=== PATIENT | female | born 1995 | race Caucasian/White ===

== ENCOUNTER 2018-05-16 08:37 | Emergency (ER) | payer MEDICAID, OTHER ==
[~2018-05-16] VITALS: Ht 152.4 cm; Wt 96.2 kg
--- NOTE | 2018-05-16 09:36 | NUR ---
LAB ORDERD PRIOR BEFORE PATIENT COMING BACK TO ROOM
[2018-05-16 09:47] LABS: BILIRUBIN,URINE NEGATIVE (NEGATIVE); CLARITY,URINE CLEAR; COLOR,URINE YELLOW; GLUCOSE, URINE (UA) NEGATIVE (NEGATIVE); KETONES,URINE NEGATIVE (NEGATIVE); LEUKOCYTE ESTERASE ,URINE NEGATIVE (NEGATIVE); NITRITE,URINE NEGATIVE (NEGATIVE); PH,URINE 7 (5-9); PROTEIN,URINE NEGATIVE (NEGATIVE); UROBILINOGEN,URINE NORMAL (NORMAL)
[2018-05-16 09:58] LABS: BACTERIA,URINE TRACE /HPF
[2018-05-16] MEDS ORDERED: VITIAMS (09:58)
[2018-05-16 10:02] LABS: BASOPHILS % (AUTO) 0 % (0-10); EOSINOPHILS # (AUTO) 0.1 10^3/uL (0.0-0.3); EOSINOPHILS % (AUTO) 0 % (0-10); HEMATOCRIT 41 % (35-52); HEMOGLOBIN 14.1 G/DL (11.5-16.0); LYMPHOCYTES # (AUTO) 2.3 X 10^3 (1.0-4.0); LYMPHOCYTES % (AUTO) 17 % (12-44); MEAN CORPUSCULAR HEMOGLOBIN 28 PG (25-34); MEAN CORPUSCULAR HGB CONC 35 G/DL (32-36); MEAN CORPUSCULAR VOLUME 82 FL (80-99); MONOCYTES # (AUTO) 0.6 X 10^3 (0.0-1.0); MONOCYTES % (AUTO) 5 % (0-12); NEUTROPHILS # (AUTO) 10.4 X 10^3 (1.8-7.8); NEUTROPHILS % (AUTO) 78 % (42-75); PLATELET COUNT 280 10^3/uL (130-400); RED CELL DISTRIBUTION WIDTH 13.9 % (10.0-14.5); WHITE BLOOD COUNT 13.3 10^3/uL (4.3-11.0)
--- NOTE | 2018-05-16 12:16 | Diagnostic Imaging Report ---
EXAMINATION: OB Ultrasound (late gestation; 14-40 weeks) INDICATION: Bleeding and cramping in a patient. Patient reports last menstrual period of 01/17/2018. TECHNIQUE: Multiple real-time grayscale images were obtained over the gravid uterus. COMPARISON: None FINDINGS: There is a single live intrauterine in the transverse position. The placenta is low/posterior in location, and there is no evidence of previa or placental abruption. The placenta is positioned adjacent to the cervix, however, does not appear to overlie the cervix. The heart rate is 149 beats per minute. The cervix measures at least 3.4 cm in length. biometric data/growth parameters are as follows: Abdominal circumference measures 11.10 cm; biparietal diameter measures 3.31 cm; head circumference measures 12.69 cm; femur length is 2.26 cm. The maternal adnexa are in suboptimally evaluated the ovaries are not visualized. IMPRESSION: Single live intrauterine gestation, with biometric data as detailed above. Adjusted ultrasound age based on biometric data on today's exam is 16 weeks 5 days, which is concordant with gestational age based on last menstrual period of 17 weeks 0 days. The placenta is located adjacent to the cervix, but does not appear to overlie the cervix at this time. Given history of vaginal spotting, close clinical followup is recommended with repeat ultrasound as indicated. Dictated by: Dictated on workstation # [id number]
--- NOTE | 2018-05-16 13:03 | ED GU-Female ---
General Chief Complaint: -Female Stated Complaint: 17 WKS PREG VAGINAL BLEEDING Nursing Triage Note: AMB TO ROOM REPORTS IS APX 17 WEEKS ONSET OF SPOTTING TODAY. ALSO REPORTS STILL BREAST FEEDING HER TODDLER. Nursing Sepsis Screen: No Definite Risk Source: patient Exam Limitations: no limitations Review of Systems Review of Systems Expected Date of Delivery: Oct 24, 2018 Past Ysafsmm-Dtcmxt-Elqldc Hx Patient Social History Alcohol Use: Denies Use Recreational Drug Use: No Smoking Status: Never a Smoker Recent Foreign Travel: No Contact w/Someone Who Travel: No Recent Infectious Disease Expo: No Past Medical History Surgeries: No Respiratory: No Cardiac: No Neurological: No : Yes Expected Date of Delivery: Oct 24, 2018 Last Menstrual Period: Jan 17, 2018 Hx : 2 Hx Para: 1 Sexually Transmitted Disease: No Genitourinary: No Gastrointestinal: No Endocrine: No HEENT: No Cancer: No Psychosocial: No Integumentary: No Physical Exam Vital Signs Vital Signs - First Documented 05/16/18 09:36 Temp 98.6 Pulse 83 Resp 18 B/P (MAP) 126/86 (99) Pulse Ox 99 O2 Delivery Room Air Capillary Refill : Less Than 3 Seconds Height, Weight, BMI Height: 5'" Weight: 212lbs. oz. 96.377607av; BMI Method:Stated Progress/Results/Core Measures Suspected Sepsis Recent Fever Within 48 Hours: No Infection Criteria Present: None New/Unexplained Altered Menta: No Sepsis Screen: No Definite Risk SIRS Temperature:98.6 Pulse: 83 Respiratory Rate: 18 Laboratory Tests 05/16/18 09:55: White Blood Count 13.3H Blood Pressure 126 /86 Mean: 99 Laboratory Tests 05/16/18 09:55: Platelet Count 280 Results/Orders Lab Results Laboratory Tests Test 05/16/18 09:40 05/16/18 09:55 Range/Units Urine Color YELLOW Urine Clarity CLEAR Urine pH 7 5-9 Urine Specific [place] 1.005 L 1.016-1.022 Urine Protein NEGATIVE NEGATIVE Urine Glucose (UA) NEGATIVE NEGATIVE Urine Ketones NEGATIVE NEGATIVE Urine Nitrite NEGATIVE NEGATIVE Urine Bilirubin NEGATIVE NEGATIVE Urine Urobilinogen NORMAL NORMAL MG/DL Urine Leukocyte Esterase NEGATIVE NEGATIVE Urine RBC (Auto) 1+ H NEGATIVE Urine RBC NONE /HPF Urine WBC NONE /HPF Urine Crystals NONE /LPF Urine Bacteria TRACE /HPF Urine Casts NONE /LPF Urine Mucus NEGATIVE /LPF Urine Culture Indicated NO White Blood Count 13.3 H 4.3-11.0 10^3/uL Red Blood Count 5.02 4.35-5.85 10^6/uL Hemoglobin 14.1 11.5-16.0 G/DL Hematocrit 41 35-52 % Mean Corpuscular Volume 82 80-99 FL Mean Corpuscular Hemoglobin 28 25-34 PG Mean Corpuscular Hemoglobin Concent 35 32-36 G/DL Red Cell Distribution Width 13.9 10.0-14.5 % Platelet Count 280 130-400 10^3/uL Mean Platelet Volume 9.0 7.4-10.4 FL Neutrophils (%) (Auto) 78 H 42-75 % Lymphocytes (%) (Auto) 17 12-44 % Monocytes (%) (Auto) 5 0-12 % Eosinophils (%) (Auto) 0 0-10 % Basophils (%) (Auto) 0 0-10 % Neutrophils # (Auto) 10.4 H 1.8-7.8 X 10^3 Lymphocytes # (Auto) 2.3 1.0-4.0 X 10^3 Monocytes # (Auto) 0.6 0.0-1.0 X 10^3 Eosinophils # (Auto) 0.1 0.0-0.3 10^3/uL Basophils # (Auto) 0.0 0.0-0.1 10^3/uL Human Chorionic Gonadotropin, Quant 97503 H <5 MIU/ML My Orders Orders - KATJA BECK MD Cbc With Automated Diff (05/16/18 08:44) Ua Culture If Indicated (05/16/18 08:44) Abo Rh Type (05/16/18 08:44) Hcg,Quantitative (05/16/18 08:44) Us Ob Preg Late(14-40wks)46756 (05/16/18 ) Vital Signs/I&O 05/16/18 09:36 Temp 98.6 Pulse 83 Resp 18 B/P (MAP) 126/86 (99) Pulse Ox 99 O2 Delivery Room Air Capillary Refill : Less Than 3 Seconds Blood Pressure Mean: 99 Departure Impression Primary Impression: Vaginal bleeding during Disposition: 01 HOME, SELF-CARE Condition: Stable Departure-Patient Inst. Referrals: SHARIF MEEKS MD (PCP/Family) Primary Care Physician Patient Instructions: NO INSTRUCTIONS GIVEN Add. Discharge Instructions: Return to care if you have worsening symptoms such as hemorrhaging, development of fever, intensifying pain or cramping, etc. Follow-up with your retirement benefits specialist on Thursday. Vaginal rest including no sexual intercourse or anything else inserted vaginally until cleared by your doctor. Avoid strenuous activity until cleared by your doctor. Usual activities of daily living may be continued. All discharge instructions reviewed with patient and/or family. Voiced understanding. KATJA BECK MD May 16, 2018 13:03
[2018-05-16 13:32] VITALS: BP 116/66
== END 2018-05-16 13:32 | disposition home or self-care (01) ==
LOC: ER 08:39
DX: O20.9 Hemorrhage in early pregnancy, unspecified (principal); Z3A.17 17 weeks gestation of pregnancy
CPT/HCPCS: 36415; 76805; 81000; 84702; 85025; 86900; 86901

== ENCOUNTER 2018-07-19 15:25 | Outpatient (CLI) | payer MEDICAID ==
[~2018-07-19] VITALS: Ht 177.8 cm; Wt 96.2 kg
--- NOTE | 2018-07-19 15:20 | NUR ---
TRACI GUALLPA presented to unit via ambulation from home, accompanied by self, with c/o PAIN. TRACI GUALLPA weighed, gowned, voided, and to bed. EFHM and TOCO applied, VS taken. TRACI GUALLPA oriented to bed controls, call light, TV, heat, and A/C controls.
[~2018-07-19 15:25] MED LIST: VITIAMS
[2018-07-19 16:02] LABS: BILIRUBIN,URINE NEGATIVE (NEGATIVE); CLARITY,URINE SLIGHTLY CLOUDY; COLOR,URINE YELLOW; GLUCOSE, URINE (UA) NEGATIVE (NEGATIVE); KETONES,URINE NEGATIVE (NEGATIVE); LEUKOCYTE ESTERASE ,URINE 3+ (NEGATIVE); NITRITE,URINE NEGATIVE (NEGATIVE); PH,URINE 7 (5-9); PROTEIN,URINE NEGATIVE (NEGATIVE); UROBILINOGEN,URINE NORMAL (NORMAL)
[2018-07-19 16:24] LABS: BACTERIA,URINE LARGE /HPF; WBC,URINE 25-50 /HPF
--- NOTE | 2018-07-19 16:30 | NUR ---
dr andrade notified of patient c/o and lab results. new orders received.
--- NOTE | 2018-07-19 16:40 | NUR ---
efm removed. no contractions. fhr WNL. baseline 125. accels noted. no decels. Addendum: 07/19/18 at 1708 by MELI GONZALES RN [id number] is time of d/c of efm
--- NOTE | 2018-07-20 14:14 | Physician Query-Final Dx ---
GUI RAY 07/20/18 1414: Clinic Account Progress/Dx Physician Query: Dr Mcbride Please give a diagnosis and include the weeks of gestation thank you Date of Service Jul 19, 2018 at 15:25 MARK MCBRIDE DO 07/29/18 1237: Clinic Account Progress/Dx DIAGNOSIS: Diagnosis 26 wk GA pelvic pain GUI RAY Jul 20, 2018 14:14 MARK MCBRIDE DO July 29, 2018 12:37
== END 2018-07-19 16:50 | disposition home or self-care (01) ==
LOC: WSo 15:25 → LDRP 15:26 → WSo 16:50
PROVIDERS: ATTEND Family Medicine
DX: O99.89 Other specified diseases and conditions complicating pregnancy, childbirth and the puerperium (principal); R10.2 Pelvic and perineal pain; Z3A.26 26 weeks gestation of pregnancy
CPT/HCPCS: 81000; 87088; 99212

== ENCOUNTER 2018-10-03 21:11 | Emergency (ER) | payer MEDICAID ==
[~2018-10-03] VITALS: Ht 177.8 cm; Wt 111.1 kg
--- OUTSIDE RECORDS SUMMARY | 2018-10-03 21:17 | XMS REPORT | Continuity of Care Document ---
Author Organization Unknown Address Unknown Allergies There is no data. Medications There is no data. Problems Date Dx Coded Attending Type Code Diagnosis Diagnosed By 05/16/2018 KIRAN MORRIS, KATJA Luna Ot O20.9 HEMORRHAGE IN EARLY , UNSPECIFI 05/16/2018 KIRAN MORRIS, KATJA Luna Ot Z3A.17 17 WEEKS GESTATION OF 05/18/2018 KATJA BECK MD, Ot O20.9 HEMORRHAGE IN EARLY , UNSPECIFI 05/18/2018 KIRAN MORRIS, KATJA Luna Ot Z3A.17 17 WEEKS GESTATION OF 07/19/2018 MARK MCBRIDE DO Ot O47.02 FALSE LABOR BEFORE 37 COMPLETED WEEKS OF 07/19/2018 MARK MCBRIDE DO Ot Z3A.26 26 WEEKS GESTATION OF 07/30/2018 MARK MCBRIDE DO Ot O99.89 OTH DISEASES AND CONDITIONS COMPL PREG/C 07/30/2018 MARK MCBRIDE DO Ot R10.2 PELVIC AND PERINEAL PAIN 07/30/2018 MARK MCBRIDE DO Ot Z3A.26 26 WEEKS GESTATION OF Procedures There is no data. Results Test Result Range Complete urinalysis with reflex to culture - 05/16/18 09:40 Urine color determination YELLOW NRG Urine clarity determination CLEAR NRG Urine pH measurement by test strip 7 5-9 Specific gravity of urine by test strip 1.005 1.016-1.022 Urine protein assay by test strip, semi-quantitative NEGATIVE NEGATIVE Urine glucose detection by automated test strip NEGATIVE NEGATIVE Erythrocytes detection in urine sediment by light microscopy 1+ NEGATIVE Urine ketones detection by automated test strip NEGATIVE NEGATIVE Urine nitrite detection by test strip NEGATIVE NEGATIVE Urine total bilirubin detection by test strip NEGATIVE NEGATIVE Urine urobilinogen measurement by automated test strip (mass/volume) NORMAL NORMAL Urine leukocyte esterase detection by dipstick NEGATIVE NEGATIVE Automated urine sediment erythrocyte count by microscopy (number/high power field) NONE NRG Automated urine sediment leukocyte count by microscopy (number/high power field) NONE NRG Bacteria detection in urine sediment by light microscopy TRACE NRG Crystals detection in urine sediment by light microscopy NONE NRG Casts detection in urine sediment by light microscopy NONE NRG Mucus detection in urine sediment by light microscopy NEGATIVE NRG Complete urinalysis with reflex to culture NO NRG Complete blood count (CBC) with automated white blood cell (WBC) differential - 05/16/18 09:55 Blood leukocytes automated count (number/volume) 13.3 10*3/uL 4.3-11.0 Blood erythrocytes automated count (number/volume) 5.02 10*6/uL 4.35-5.85 Venous blood hemoglobin measurement (mass/volume) 14.1 g/dL 11.5-16.0 Blood hematocrit (volume fraction) 41 % 35-52 Automated erythrocyte mean corpuscular volume 82 [foz_us] 80-99 Automated erythrocyte mean corpuscular hemoglobin (mass per erythrocyte) 28 pg 25-34 Automated erythrocyte mean corpuscular hemoglobin concentration measurement (mass/volume) 35 g/dL 32-36 Automated erythrocyte distribution width ratio 13.9 % 10.0- 14.5 Automated blood platelet count (count/volume) 280 10*3/uL 130-400 Automated blood platelet mean volume measurement 9.0 [foz_us] 7.4-10.4 Automated blood neutrophils/100 leukocytes 78 % 42-75 Automated blood lymphocytes/100 leukocytes 17 % 12-44 Blood monocytes/100 leukocytes 5 % 0-12 Automated blood eosinophils/100 leukocytes 0 % 0-10 Automated blood basophils/100 leukocytes 0 % 0-10 Blood neutrophils automated count (number/volume) 10.4 10*3 1.8-7.8 Blood lymphocytes automated count (number/volume) 2.3 10*3 1.0-4.0 Blood monocytes automated count (number/volume) 0.6 10*3 0.0- 1.0 Automated eosinophil count 0.1 10*3/uL 0.0-0.3 Automated blood basophil count (count/volume) 0.0 10*3/uL 0.0-0.1 ABO+Rh group - 05/16/18 09:55 ABO+Rh group OP NRG Serum or plasma choriogonadotropin measurement (units/volume) - 05/16/18 09:55 Serum or plasma choriogonadotropin measurement (units/volume) 53896 m[iU]/mL <5 UA W/ MICROSCOPY - 05/25/18 17:48 COLOR YELLOW YELLOW APPEARANCE CLEAR CLEAR SPECIFIC GRAVITY 1.008 1.001-1.035 PH 6.0 5.0-8.0 GLUCOSE NEGATIVE NEGATIVE BILIRUBIN NEGATIVE NEGATIVE KETONES NEGATIVE NEGATIVE OCCULT BLOOD NEGATIVE NEGATIVE PROTEIN NEGATIVE NEGATIVE NITRITE NEGATIVE NEGATIVE LEUKOCYTE ESTERASE TRACE NEGATIVE WBC 0-5 /HPF < OR=5 RBC NONE SEEN /HPF < OR=2 SQUAMOUS EPITHELIAL CELLS NONE SEEN /HPF < OR=5 BACTERIA NONE SEEN /HPF NONE SEEN HYALINE CAST NONE SEEN /LPF NONE SEEN CBC w/MANUAL DIFF - 05/26/18 12:15 WHITE BLOOD CELL COUNT 14.5 Thousand/uL 3.8-10.8 RED BLOOD CELL COUNT 4.78 Million/uL 3.80-5.10 HEMOGLOBIN 13.6 g/dL 11.7-15.5 HEMATOCRIT 39.9 % 35.0-45.0 MCV 83.5 fL 80.0-100.0 MCH 28.5 pg 27.0-33.0 MCHC 34.1 g/dL 32.0-36.0 RDW 12.5 % 11.0-15.0 PLATELET COUNT 269 Thousand/uL 140-400 MPV 9.6 fL 7.5-12.5 ABSOLUTE NEUTROPHILS 75456 cells/uL 9833-3666 ABSOLUTE MONOCYTES 435 cells/uL 200-950 ABSOLUTE EOSINOPHILS 290 cells/uL 15-500 ABSOLUTE BASOPHILS 0 cells/uL 0-200 NEUTROPHILS 75.8 % NRG LYMPHOCYTES 19.2 % NRG MONOCYTES 3.0 % NRG EOSINOPHILS 2.0 % NRG BASOPHILS 0 % NRG ABSOLUTE LYMPHOCYTES 2784 cells/uL 850-3900 PLATELET ESTIMATION ADEQUATE ADEQUATE Complete urinalysis with reflex to culture - 07/19/18 15:40 Urine color determination YELLOW NRG Urine clarity determination SLIGHTLY CLOUDY NRG Urine pH measurement by test strip 7 5-9 Specific gravity of urine by test strip 1.010 1.016-1.022 Urine protein assay by test strip, semi-quantitative NEGATIVE NEGATIVE Urine glucose detection by automated test strip NEGATIVE NEGATIVE Erythrocytes detection in urine sediment by light microscopy NEGATIVE NEGATIVE Urine ketones detection by automated test strip NEGATIVE NEGATIVE Urine nitrite detection by test strip NEGATIVE NEGATIVE Urine total bilirubin detection by test strip NEGATIVE NEGATIVE Urine urobilinogen measurement by automated test strip (mass/volume) NORMAL NORMAL Urine leukocyte esterase detection by dipstick 3+ NEGATIVE Automated urine sediment erythrocyte count by microscopy (number/high power field) NONE NRG Automated urine sediment leukocyte count by microscopy (number/high power field) [HPF] NRG Bacteria detection in urine sediment by light microscopy LARGE NRG Squamous epithelial cells detection in urine sediment by light microscopy 10-25 NRG Crystals detection in urine sediment by light microscopy NONE NRG Casts detection in urine sediment by light microscopy NONE NRG Mucus detection in urine sediment by light microscopy NEGATIVE NRG Complete urinalysis with reflex to culture YES NRG Bacterial urine culture - 07/19/18 15:40 Bacterial urine culture SEE REPORT NRG COLONY COUNT . NRG GLUCOSE ESTEBAN 1 HOUR - 08/04/18 12:13 GLUCOSE, POSTPRANDIAL/ 1 HOUR 93 mg/dL See Note: CBC - 08/04/18 12:13 WHITE BLOOD CELL COUNT 14.9 Thousand/uL 3.8-10.8 RED BLOOD CELL COUNT 4.97 Million/uL 3.80-5.10 HEMOGLOBIN 13.4 g/dL 11.7-15.5 HEMATOCRIT 42.0 % 35.0-45.0 MCV 84.5 fL 80.0-100.0 MCH 27.0 pg 27.0-33.0 MCHC 31.9 g/dL 32.0-36.0 RDW 12.5 % 11.0-15.0 PLATELET COUNT 264 Thousand/uL 140-400 MPV 9.3 fL 7.5-12.5 ABSOLUTE NEUTROPHILS 18659 cells/uL 0196-9571 ABSOLUTE LYMPHOCYTES 2533 cells/uL 850-3900 ABSOLUTE MONOCYTES 685 cells/uL 200-950 ABSOLUTE EOSINOPHILS 89 cells/uL 15-500 ABSOLUTE BASOPHILS 30 cells/uL 0-200 NEUTROPHILS 77.6 % NRG LYMPHOCYTES 17.0 % NRG MONOCYTES 4.6 % NRG EOSINOPHILS 0.6 % NRG BASOPHILS 0.2 % NRG Encounters ACCT No. Visit Date/Time Discharge Status Pt. Type Provider Facility Loc./Unit Complaint [id number] 10/01/2018 12:15:00 [id number] 08/04/2018 11:15:00 Document Registration [id number] 05/26/2018 11:15:00 Document Registration [id number] 05/25/2018 17:00:00 Document Registration [id number] 07/19/2018 15:25:00 07/19/2018 16:50:00 DIS Outpatient MARK MCBRIDE DO [facility] WSo PAIN [id number] 05/16/2018 08:39:00 05/16/2018 13:32:00 DIS Emergency KIRAN MORRIS, KATJA Luna [facility] ER 17 WKS PREG VAGINAL BLEEDING
--- NOTE | 2018-10-03 21:34 | ED GU-Female ---
General Chief Complaint: Abdominal/GI Problems Stated Complaint: CONTRACTIONS 37 WEEKS Source: patient Exam Limitations: no limitations History of Present Illness Date Seen by Provider: Oct 03, 2018 Time Seen by Provider: 21:20 Initial Comments The patient presents to the ER by private conveyance is a with 37 weeks and 0 days with a EDC of October 24, 2018. She's having contractions about one every 7-10 minutes. They last about 30 seconds. She feels pressure and some pain in her back. She's had some GERD for which she's used Tums. She is known to Dr. Meeks. She did not want to drive all the way down to [place] if she can avoid it so she decided to come in and see what her cervix was doing. She has had no problems at this point seen or the last from see. She said last time her cervix did not dilate on its own. This time she had a cervical checked by Dr. Meeks in the office Thursday, 2 days ago and she was 3 out of 10. She denies dysuria or discharge. No fever nausea chills diarrhea or constipation. She indicates that she had a low-lying placenta on her initial ultrasound by the 20 week ultrasound the placenta had moved out of the way of the cervix. The patient is feeling motion frequently; within the last 5 minutes she felt kicking. Allergies and Home Medications Patient Home Medication List Home Medication List Reviewed: Yes Review of Systems Review of Systems Constitutional: No chills, No fever EENTM: No ear discharge, No ear pain Respiratory: No cough, No short of breath Cardiovascular: No chest pain, No edema Gastrointestinal: No abdominal pain, No constipation, No diarrhea Past Fezulhk-Txlpgw-Jupmqt Hx Patient Social History Alcohol Use: Denies Use Recreational Drug Use: No Smoking Status: Never a Smoker Past Medical History Surgeries: No Respiratory: No Cardiac: No Neurological: No Sexually Transmitted Disease: No Genitourinary: No Gastrointestinal: No Endocrine: No HEENT: No Cancer: No Psychosocial: No Integumentary: No Physical Exam Vital Signs Capillary Refill : Height, Weight, BMI Height: 5'10.00" Weight: 212lbs. 0.0oz. 96.323524lz; 30.4 BMI Method:Stated General Appearance: WD/WN, no apparent distress HEENT: PERRL/EOMI, normal ENT inspection Neck: full range of motion, normal inspection Cardiovascular: normal peripheral pulses, regular rate, rhythm Respiratory: lungs clear, normal breath sounds, no respiratory distress, no accessory muscle use Gastrointestinal: normal bowel sounds, non tender, soft, other (gravid) Neurologic/Psychiatric: alert, normal mood/affect, oriented x 3 Skin: normal color, warm/dry Progress/Results/Core Measures Suspected Sepsis SIRS Temperature: Pulse: Respiratory Rate: Blood Pressure / Mean: Results/Orders Lab Results Laboratory Tests Test 10/03/18 21:27 Range/Units My Orders Orders - TRISH CRUZ Ua Culture If Indicated (10/03/18 21:25) Vital Signs/I&O Capillary Refill : Progress Note : Time: 21:32 Progress Note UA, Cervical check. Wet prep if indicated. FHT: 146 Fundal Height: 37 cm Cervix 50% 3cm Ultrasound from 05/16/18: Placenta lies adjacent to the cervix but not over the cervix. Consults Consults : Consulting Physician: SHARIF MEEKS MD Consults Notes Discussed the case and while she has concerns that there is no way to do any monitoring she says if the patient's not having any overt distress it would probably be okay if she went home. Departure Impression Primary Impression: Rodrigo Valencia contractions Disposition: 01 HOME, SELF-CARE Condition: Stable Departure-Patient Inst. Decision time for Depature: 21:44 Referrals: SHARIF MEEKS MD (PCP/Family) Primary Care Physician Patient Instructions: How to Tell When Labor Starts Add. Discharge Instructions: If you start to have loss of fluids bleeding or significant contractions that double you over then you should present to [facility] for your OB to evaluate you and your fetus. Drink plenty of fluids. All discharge instructions reviewed with patient and/or family. Voiced understanding. TRISH CRUZ Oct 03, 2018 21:34
[2018-10-03 21:40] LABS: BILIRUBIN,URINE NEGATIVE (NEGATIVE); CLARITY,URINE CLEAR; COLOR,URINE PALE YELLOW; GLUCOSE, URINE (UA) NEGATIVE (NEGATIVE); KETONES,URINE NEGATIVE (NEGATIVE); LEUKOCYTE ESTERASE ,URINE 1+ (NEGATIVE); NITRITE,URINE NEGATIVE (NEGATIVE); PROTEIN,URINE NEGATIVE (NEGATIVE); UROBILINOGEN,URINE 0.2 MG/DL (NORMAL)
[2018-10-03 21:41] LABS: BACTERIA,URINE TRACE /HPF; WBC,URINE 0-2 /HPF
[2018-10-03 21:57] VITALS: BP 133/78
== END 2018-10-03 22:01 | disposition home or self-care (01) ==
LOC: EDUNIT# 21:11 → ER FS 21:13
DX: O47.1 False labor at or after 37 completed weeks of gestation (principal); O99.613 Diseases of the digestive system complicating pregnancy, third trimester; K21.9 Gastro-esophageal reflux disease without esophagitis; Z3A.37 37 weeks gestation of pregnancy
CPT/HCPCS: 81000

== ENCOUNTER 2018-10-16 19:43 | Outpatient (CLI) | payer MEDICAID ==
[~2018-10-16] VITALS: Ht 177.8 cm; Wt 112.5 kg
--- NOTE | 2018-10-16 19:58 | NUR ---
TRACI GUALLPA presented to unit via AMBULATORY from ED, accompanied by S/O, with c/o CONTRACTIONS. TRACI GUALLPA weighed, gowned, voided, and to bed. EFHM and TOCO applied, VS taken. TRACI GUALLPA oriented to bed controls, call light, TV, heat, and A/C controls.
[2018-10-16 20:10] VITALS: BP 124/72
[2018-10-16 20:24] LABS: BILIRUBIN,URINE NEGATIVE (NEGATIVE); CLARITY,URINE VERY CLOUDY; COLOR,URINE YELLOW; GLUCOSE, URINE (UA) NEGATIVE (NEGATIVE); KETONES,URINE 1+ (NEGATIVE); LEUKOCYTE ESTERASE ,URINE 3+ (NEGATIVE); NITRITE,URINE NEGATIVE (NEGATIVE); PH,URINE 6 (5-9); PROTEIN,URINE 1+ (NEGATIVE); UROBILINOGEN,URINE 1 MG/DL (NORMAL)
[2018-10-16 20:50] LABS: AMORPHOUS SEDIMENT,UR LARGE AMOR URATES /LPF; BACTERIA,URINE MODERATE /HPF; SQUAMOUS EPITHELIAL CELL,UR 0-2 /HPF
[2018-10-16 20:51] LABS: CALCIUM OXALATE CRYSTALS,UR FEW /LPF
--- NOTE | 2018-10-16 21:12 | NUR ---
Dr Davison notified of pt admission - will plan to orally hydrate and watch contractions.
[2018-10-16] MEDS ORDERED: cefTRIAXone FOR IV USE 1,000 MG in WATER (STERILE) FOR INJECTION 10 ML IV ONE (23:00)
[2018-10-16] MEDS ORDERED: LACTATED RINGERS 1,000 ML IV SCH (23:00)
--- NOTE | 2018-10-16 23:00 | NUR ---
Dr Davison notified of UA results - ordered IV fluids and Rocephin
[2018-10-16] MEDS ORDERED: LACTATED RINGERS 1,000 ML IV ONE (23:01)
[2018-10-16] MEDS ORDERED: cefTRIAXone 1,000 MG IV (ROCEPHIN) VIAL ONE (23:01)
[2018-10-16] MEDS ORDERED: WATER (STERILE) FOR INJECTION 10 ML ONE (23:02)
[2018-10-16 23:30] VITALS: BP 125/71
--- NOTE | 2018-10-17 00:43 | NUR ---
Dr Davison notified that IV fluids are completed, no cervical change and pt was sleeping. Orders to discharge to home. 0100 Pt dressed and discharged. Labor precautions given.
[2018-10-17] MEDS ORDERED: FAMO-144 PO ×2 (00:48)
[2018-10-17] MEDS ORDERED: PREN-37 PO ×2 (11:03)
[2018-10-18] MEDS ORDERED: IBUP-844 PO ×2 (13:23)
== END 2018-10-17 01:00 | disposition home or self-care (01) ==
LOC: WSo 19:43 → LDRP 19:48 → WSo 10-17 01:00
PROVIDERS: ATTEND Family Medicine
DX: O47.1 False labor at or after 37 completed weeks of gestation (principal); Z3A.38 38 weeks gestation of pregnancy
CPT/HCPCS: 81000; 87088; 96361; 96374; 99213

== ENCOUNTER 2018-10-17 07:10 | Inpatient (IN) | payer MEDICAID ==
[2018-10-17] VITALS (42 sets, daily range): BP systolic 104–144; BP diastolic 55–91
[~2018-10-17] VITALS: Ht 177.8 cm; Wt 112.5 kg
--- NOTE | 2018-10-17 07:00 | NUR ---
TRACI GUALLPA presented to unit via AMBULATORY from HOME, accompanied by S/O, with c/o CTXS. TRACI GUALLPA weighed, gowned, voided, and to bed. EFHM and TOCO applied, VS taken. TRACI GUALLPA oriented to bed controls, call light, TV, heat, and A/C controls.
[~2018-10-17 07:10] MED LIST changes: +D5 LR IV SOLUTION 1,000 ML IV ONE; +FAMO-144 PO
[2018-10-17] MEDS ORDERED: OXYTOCIN/NORMAL SALINE 500 ML IV ONE (07:26)
[2018-10-17] MEDS ORDERED: MINERAL OIL CONCENTRATE 99.9% 15 ML UDC ONE (07:26)
[2018-10-17] MEDS ORDERED: LIDOCAINE/EPI 2% 1:200,00 (XYLOCAINE) 10 ML VIAL ONE (07:26)
[2018-10-17 07:51] LABS: BASOPHILS % (AUTO) 0 % (0-10); EOSINOPHILS # (AUTO) 0.1 10^3/uL (0.0-0.3); EOSINOPHILS % (AUTO) 0 % (0-10); HEMATOCRIT 40 % (35-52); HEMOGLOBIN 13.3 G/DL (11.5-16.0); LYMPHOCYTES % (AUTO) 13 % (12-44); MEAN CORPUSCULAR HEMOGLOBIN 28 PG (25-34); MEAN CORPUSCULAR HGB CONC 33 G/DL (32-36); MEAN CORPUSCULAR VOLUME 83 FL (80-99); MEAN PLATELET VOLUME 9.2 FL (7.4-10.4); MONOCYTES # (AUTO) 1.1 X 10^3 (0.0-1.0); MONOCYTES % (AUTO) 7 % (0-12); NEUTROPHILS # (AUTO) 12.2 X 10^3 (1.8-7.8); NEUTROPHILS % (AUTO) 79 % (42-75); PLATELET COUNT 254 10^3/uL (130-400); RED CELL DISTRIBUTION WIDTH 13.9 % (10.0-14.5); WHITE BLOOD COUNT 15.4 10^3/uL (4.3-11.0)
[2018-10-17] MEDS ORDERED: D5 LR IV SOLUTION 1,000 ML IV SCH (07:54)
--- NOTE | 2018-10-17 07:59 | History & Physical-OB ---
OB - Chief Complaint & HPI Date/Time Date of Admission: Date of Admission: 10/17/18 Date seen by a Provider: Oct 17, 2018 Time Seen by a Provider: 07:55 Chief Complaint/History OB-Reason for Admission/Chief: Onset of Labor Hx : 2 Hx Para: 1 Hx Last Menstrual Period: 01/17/18 Expected Date of Delivery: Oct 24, 2018 Gestational Age in Weeks: 39 Gestational Age in Days: 0 Allergies and Home Medications Allergies Coded Allergies: No Known Drug Allergies (Unverified , 10/16/18) Home Medications Famotidine 10 Mg Tablet, 10 MG PO BID PRN for antacid, (Reported) Patient Home Medication List Home Medication List Reviewed: Yes OB - History Hx of Present Care: Yes Ultrasounds: Normal mid trimester US Obstetrical Complications: None Medical Complications: None Information Induced Hypertension: No Maternal Gestational Diabetes: No Hemorrhage: No Obstetrical History Hx : 2 Hx Para: 1 Hx # Term Pregnancies: 1 Number of Living Children: 1 Hx Termination: No Hx Multiple Gestation: No Hx Ectopic : No Hx Stillbirth: No Hx Complication: No Hx Induced Hypertens: No Hx Maternal Gestational Diabet: No Hx Hemorrhage: No Delivery History Hx Dystocia: No Hx Forceps Assisted Delivery: No Hx Vacuum Extraction Assisted: No Hx Placenta Abnormality: No Hx Distress: No Hx Large For Gestational Age I: No Hx Small for Gestational Age I: No Hx Section: No Hx Vaginal Delivery Post C-Sec: No Hx Blood Disorders: No Adverse Rxn to Tranfusion: No Patient Past Medical History Denies Social History/Family History HIV/AIDS: No Recent Infectious Disease Expo: No Sexually Transmitted Disease: No Immunizations Rubella: immune RPR/VDRL: Negative GBS Status: Negative HBsAG: Negative OB - Admission Exam Physical Exam Abdomen: Gravid Cervical Dilatation: 8cm Membranes: Intact Heart Rate: 130's Accelerations: Accelerations Present Decelerations: No Decelerations Contractions on Admission: < 5 Minutes Apart Intensity: Firm Labs Laboratory Tests Test 10/17/18 07:45 Range/Units OB - Assessment/Plan/Diagnosis Assessment Assessment: active labor Admission Dx at 39wk with BOYD Admission Status: Inpatient Order (span 2 midnights) Reason for Inpatient Admission: labor and delivery Plan Plan: Expectant Management Copy Copies To 1: SHARIF MEEKS MD, LINDA K DO Oct 17, 2018 07:59
[2018-10-17] MEDS ORDERED: MINERAL OIL CONCENTRATE 99.9% 15 ML UDC TOP PRN (08:00)
[2018-10-17] MEDS ORDERED: SUFENTA 0.6MCG/ML BUPIVA 0.125 100 ML ONE (08:03)
--- OUTSIDE RECORDS SUMMARY | 2018-10-17 08:08 | XMS REPORT | Continuity of Care Document ---
Author Organization Unknown Address Unknown Allergies There is no data. Medications There is no data. Problems Date Dx Coded Attending Type Code Diagnosis Diagnosed By 05/16/2018 KIRAN MORRIS, KATJA Luna Ot O20.9 HEMORRHAGE IN EARLY , UNSPECIFI 05/16/2018 KATJA BECK MD, Ot Z3A.17 17 WEEKS GESTATION OF 05/18/2018 KATJA BECK MD, Ot O20.9 HEMORRHAGE IN EARLY , UNSPECIFI 05/18/2018 KATJA BECK MD, Ot Z3A.17 17 WEEKS GESTATION OF 07/19/2018 MARK MCBRIDE DO Ot O47.02 FALSE LABOR BEFORE 37 COMPLETED WEEKS OF 07/19/2018 MARK MCBRIDE DO Ot Z3A.26 26 WEEKS GESTATION OF 07/30/2018 MARK MCBRIDE DO Ot O99.89 OTH DISEASES AND CONDITIONS COMPL PREG/C 07/30/2018 MARK MCBRIDE DO Ot R10.2 PELVIC AND PERINEAL PAIN 07/30/2018 MARK MCBRIDE DO Ot Z3A.26 26 WEEKS GESTATION OF 10/03/2018 TRISH CRUZ MD Ot K21.9 GASTRO-ESOPHAGEAL REFLUX DISEASE WITHOUT 10/03/2018 TRISH CRUZ MD Ot O47.1 FALSE LABOR AT OR AFTER 37 COMPLETED WEE 10/03/2018 TRISH CRUZ MD Ot O99.613 DISEASES OF THE DGSTV SYS COMP 10/03/2018 TRISH CRUZ MD Ot Z3A.37 37 WEEKS GESTATION OF 10/09/2018 TRISH CRUZ MD Ot K21.9 GASTRO-ESOPHAGEAL REFLUX DISEASE WITHOUT 10/09/2018 TRISH CRUZ MD Ot O47.1 FALSE LABOR AT OR AFTER 37 COMPLETED WEE 10/09/2018 TRISH CRUZ MD Ot O99.613 DISEASES OF THE DGSTV SYS COMP 10/09/2018 ANTHONY MORRIS, TRISH Zamora Ot Z3A.37 37 WEEKS GESTATION OF Procedures There is no [...] 09:55 Serum or plasma choriogonadotropin measurement (units/volume) 93374 m[iU]/mL <5 UA W/ MICROSCOPY - 05/25/18 [...] 140-400 MPV 9.6 fL 7.5-12.5 ABSOLUTE NEUTROPHILS 73705 cells/uL 1765-5692 ABSOLUTE MONOCYTES 435 cells/uL 200-950 ABSOLUTE EOSINOPHILS [...] 140-400 MPV 9.3 fL 7.5-12.5 ABSOLUTE NEUTROPHILS 02815 cells/uL 6095-6575 ABSOLUTE LYMPHOCYTES 2533 cells/uL 850-3900 ABSOLUTE MONOCYTES 685 cells/uL 200-950 ABSOLUTE EOSINOPHILS 89 cells/uL 15-500 ABSOLUTE BASOPHILS 30 cells/uL 0-200 NEUTROPHILS 77.6 % NRG LYMPHOCYTES 17.0 % NRG MONOCYTES 4.6 % NRG EOSINOPHILS 0.6 % NRG BASOPHILS 0.2 % NRG CULTURE, GROUP B STREP WITH SUSCEPTIBILITY - 10/01/18 12:49 CULTURE, GROUP B STREP WITH SUSCEPTIBILITY SEE NOTE NRG Complete urinalysis with reflex to culture - 10/03/18 21:27 Urine color determination PALE YELLOW NRG Urine clarity determination CLEAR NRG Urine pH measurement by test strip 7.0 5-9 Specific gravity of urine by test strip <= 1.016-1.022 Urine protein assay by test strip, semi-quantitative NEGATIVE NEGATIVE Urine glucose detection by automated test strip NEGATIVE NEGATIVE Erythrocytes detection in urine sediment by light microscopy NEGATIVE NEGATIVE Urine ketones detection by automated test strip NEGATIVE NEGATIVE Urine nitrite detection by test strip NEGATIVE NEGATIVE Urine total bilirubin detection by test strip NEGATIVE NEGATIVE Urine urobilinogen measurement by automated test strip (mass/volume) 0.2 mg/dL NORMAL Urine leukocyte esterase detection by dipstick 1+ NEGATIVE Automated urine sediment erythrocyte count by microscopy (number/high power field) NONE NRG Automated urine sediment leukocyte count by microscopy (number/high power field) [HPF] NRG Bacteria detection in urine sediment by light microscopy TRACE NRG Squamous epithelial cells detection in urine sediment by light microscopy 2-5 NRG Crystals detection in urine sediment by light microscopy NONE NRG Casts detection in urine sediment by light microscopy NONE NRG Mucus detection in urine sediment by light microscopy NONE NRG Complete urinalysis with reflex to culture NO NRG Complete urinalysis with reflex to culture - 10/16/18 20:00 Urine color determination YELLOW NRG Urine clarity determination VERY CLOUDY NRG Urine pH measurement by test strip 6 5-9 Specific gravity of urine by test strip 1.025 1.016-1.022 Urine protein assay by test strip, semi-quantitative 1+ NEGATIVE Urine glucose detection by automated test strip NEGATIVE NEGATIVE Erythrocytes detection in urine sediment by light microscopy NEGATIVE NEGATIVE Urine ketones detection by automated test strip 1+ NEGATIVE Urine nitrite detection by test strip NEGATIVE NEGATIVE Urine total bilirubin detection by test strip NEGATIVE NEGATIVE Urine urobilinogen measurement by automated test strip (mass/volume) 1 mg/dL NORMAL Urine leukocyte esterase detection by dipstick 3+ NEGATIVE Automated urine sediment erythrocyte count by microscopy (number/high power field) [HPF] NRG Automated urine sediment leukocyte count by microscopy (number/high power field) [HPF] NRG Bacteria detection in urine sediment by light microscopy MODERATE NRG Squamous epithelial cells detection in urine sediment by light microscopy 0-2 NRG Crystals detection in urine sediment by light microscopy PRESENT NRG Casts detection in urine sediment by light microscopy NONE NRG Mucus detection in urine sediment by light microscopy MODERATE NRG Complete urinalysis with reflex to culture YES NRG Amorphous sediment detection in urine sediment by light microscopy LARGE GIOVANY URATES NRG Calcium oxalate crystals detection in urine sediment by light microscopy FEW NRG Complete blood count (CBC) with automated white blood cell (WBC) differential - 10/17/18 07:45 Blood leukocytes automated count (number/volume) 15.4 10*3/uL 4.3-11.0 Blood erythrocytes automated count (number/volume) 4.80 10*6/uL 4.35-5.85 Venous blood hemoglobin measurement (mass/volume) 13.3 g/dL 11.5-16.0 Blood hematocrit (volume fraction) 40 % 35-52 Automated erythrocyte mean corpuscular volume 83 [foz_us] 80-99 Automated erythrocyte mean corpuscular hemoglobin (mass per erythrocyte) 28 pg 25-34 Automated erythrocyte mean corpuscular hemoglobin concentration measurement (mass/volume) 33 g/dL 32-36 Automated erythrocyte distribution width ratio 13.9 % 10.0- 14.5 Automated blood platelet count (count/volume) 254 10*3/uL 130-400 Automated blood platelet mean volume measurement 9.2 [foz_us] 7.4-10.4 Automated blood neutrophils/100 leukocytes 79 % 42-75 Automated blood lymphocytes/100 leukocytes 13 % 12-44 Blood monocytes/100 leukocytes 7 % 0-12 Automated blood eosinophils/100 leukocytes 0 % 0-10 Automated blood basophils/100 leukocytes 0 % 0-10 Blood neutrophils automated count (number/volume) 12.2 10*3 1.8-7.8 Blood lymphocytes automated count (number/volume) 2.0 10*3 1.0-4.0 Blood monocytes automated count (number/volume) 1.1 10*3 0.0- 1.0 Automated eosinophil count 0.1 10*3/uL 0.0-0.3 Automated blood basophil count (count/volume) 0.0 10*3/uL 0.0-0.1 Encounters ACCT No. Visit Date/Time Discharge Status Pt. Type Provider Facility Loc./Unit Complaint [id number] 10/11/2018 11:15:00 10/11/2018 23:59:59 CLS Outpatient SHARIF MEEKS [facility] [id number] 10/01/2018 12:15:00 Document Registration [id number] 08/04/2018 11:15:00 Document Registration [id number] 05/26/2018 11:15:00 Document Registration [id number] 05/25/2018 17:00:00 Document Registration [id number] 10/03/2018 21:13:00 10/03/2018 22:01:00 DIS Emergency ANTHONY MORRIS, TRISH Zamora [facility] ER FS CONTRACTIONS 37 WEEKS [id number] 07/19/2018 15:25:00 07/19/2018 16:50:00 DIS Outpatient MARK MCBRIDE DO [facility] WSo PAIN [id number] 05/16/2018 08:39:00 05/16/2018 13:32:00 DIS Emergency KIRAN MORRIS, KATJA Luna [facility] ER 17 WKS PREG VAGINAL BLEEDING [id number] 10/17/2018 08:05:00 Document Registration [id number] 10/16/2018 20:51:00 Document Registration
--- NOTE | 2018-10-17 08:29 | NUR ---
0829 Karissa CRUZ CRNA here for epidural placement. Procedure explained, consent reviewed and signed by anesthesia. Questions answered to patient's satisfaction. Time out taken to verify correct patient/procedure. 0833 Patient up to side of bed, assisted into sitting position. 0836 Betadine prep done x3 and sterile drape applied. 0839 Local done, see anesthesia record. 0841 Test dose given, see anesthesia record for drug and dosage. 0843 Test dose #2 given, see anesthesia record for drug and dosage. Epidural catheter secured in place. Epidural placement complete. 0848 Assisted back into bed, monitors adjusted. Epidural dosed, see anesthesia record. Epidural of Sufenta/Bupvicaine @12cc/hr stated per pump. Patient tolerated procedure well.
[2018-10-17 08:51] LABS: BAND NEUTROPHILS 5 %; BASOPHILS % (MANUAL) 0 %; EOSINOPHILS % (MANUAL) 0 %; LYMPHOCYTES % (MANUAL) 13 %; MONOCYTES % (MANUAL) 5 %; NEUTROPHILS % (MANUAL) 77 %; RBC MORPH NORMAL
[2018-10-17] MEDS ORDERED: LACTATED RINGERS 1,000 ML IV SCH (08:54)
[2018-10-17] MEDS ORDERED: NALOXONE 0.4 MG/ML 1 ML (NARCAN) VIAL IV PRN ×2 (09:00)
[2018-10-17] MEDS ORDERED: diphenhydrAMINE 50 MG/ML INJ (BENADRYL) IV PRN (09:00)
[2018-10-17] MEDS ORDERED: EPIDURAL (SUFENTA 0.6MCG/ML BUPIVA 0.125%) 100 ML BAG EPI SCH (09:00)
[2018-10-17] MEDS ORDERED: METOCLOPRAMIDE INJ 10 MG/2 ML (REGLAN) IV PRN (09:00)
[2018-10-17] MEDS ORDERED: ONDANSETRON 4 MG/2 ML (SDV) Z0FRAN IV PRN (09:00)
[2018-10-17] MEDS ORDERED: PREN-37 PO ×2 (11:03)
--- NOTE | 2018-10-17 11:22 | OB Labor & Delivery Record ---
Vag Delivery Note Vag Delivery Note Date of Delivery: 10/17/18 Preoperative Diagnosis: Aliya Calderon is a (23 /Para 2 / 1, Gestational Age (wks)39with spontaneous onset of labor. Postoperative Diagnosis: Same Surgeon: MARK MCBRIDE Anesthesia: epidural Delivery Type: Findings: Viable male infant, apgars 7,9, weight 8#4 born in OP presentation Lacerations: none Intact placenta with 3 vessel cord. Nuchal cord x2, no body cord or shoulder dystocia Estimated Blood Loss: 300 ml Complications: None Condition: Stable Description of Procedure: The patient is a 23 year old female who presented at 8cm dilated. She was admitted and informed consent was obtained. Her labor course was unremarkable. She progressed to complete dilatation and began to push. She was then set up for delivery. The 's head was delivered atraumatically in the LOP position. The shoulders and remainder of the 's body were then delivered without difficulty. Upon delivery, the head was held below the level of the perineum and the mouth and nares were bulb suctioned. The cord was doubly clamped and cut and the infant was placed on the maternal abdomen. An intact placenta with 3-vessel cord delivered via Az and there was found to be minimal bleeding.~ Vigorous fundal massage was performed and the fundus was found to be firm. IV oxytocin was given. Examination of the vagina and perineum revealed no lacerations. Following the repair, sponge, instrument and needle counts were correct. Mom and baby were both in stable condition in the labor suite. Vitals - Labs Vital Signs - I&O Vital Signs Date Time Temp Pulse Resp B/P (MAP) Pulse Ox O2 Delivery O2 Flow Rate FiO2 10/17/18 08:47 92 18 133/84 (100) 99 Room Air 10/17/18 08:44 81 18 130/82 (98) 97 Room Air 10/17/18 08:41 83 18 126/82 (97) 97 Room Air 10/17/18 08:38 98 18 139/91 (107) 98 Room Air 10/17/18 08:35 84 18 133/84 (100) 97 Room Air 10/17/18 08:15 98.9 86 18 137/86 (103) Room Air 10/17/18 07:29 98.0 95 18 133/86 (102) Room Air Labs Laboratory Tests 10/17/18 07:45: White Blood Count 15.4H, Red Blood Count 4.80, Hemoglobin 13.3, Hematocrit 40, Mean Corpuscular Volume 83, Mean Corpuscular Hemoglobin 28, Mean Corpuscular Hemoglobin Concent 33, Red Cell Distribution Width 13.9, Platelet Count 254, Mean Platelet Volume 9.2, Neutrophils (%) (Auto) 79H, Lymphocytes (%) (Auto) 13, Monocytes (%) (Auto) 7, Eosinophils (%) (Auto) 0, Basophils (%) (Auto) 0, Neutrophils # (Auto) 12.2H, Lymphocytes # (Auto) 2.0, Monocytes # (Auto) 1.1H, Eosinophils # (Auto) 0.1, Basophils # (Auto) 0.0, Neutrophils % (Manual) 77, Lymphocytes % (Manual) 13, Monocytes % (Manual) 5, Eosinophils % (Manual) 0, Basophils % (Manual) 0, Band Neutrophils 5, Blood Morphology Comment NORMAL MARK MCBRIDE DO Oct 17, 2018 11:22
[2018-10-17] MEDS ORDERED: D5 LR IV SOLUTION 1,000 ML IV ONE (11:39)
[2018-10-17] MEDS ORDERED: WITCH HAZEL(TUCKS) 40 EA JAR TOP PRN (11:45)
[2018-10-17] MEDS ORDERED: TETANUS,DIPTH,PERTUSS P/F (BOOSTRIX) 0.5 ML VIAL IM ONE (11:45)
[2018-10-17] MEDS ORDERED: BENZOCAINE/MENTHOL (DERMOPLAST) 56 ML CAN TP PRN (11:45)
--- NOTE | 2018-10-17 13:57 | NUR ---
REFER TO LABOR FLOW SHEET.
[2018-10-17] MEDS ORDERED: CATHETER FLUSH 10 ML SYR IV SCH ×2 (14:00)
[2018-10-17] MEDS: IBUPROFEN 600 MG (MOTRIN) TAB PO SCH ×2 (14:02→20:32)
--- NOTE | 2018-10-17 15:00 | NUR ---
FAMILY AND VISITORS AT THE BEDSIDE, NO NEEDS VOICED, PT .
--- NOTE | 2018-10-17 16:50 | NUR ---
PT SITTING IN BED. FAMILY AT THE BEDSIDE. VS OBTAINED. NO NEEDS VOICED.
--- NOTE | 2018-10-17 17:34 | NUR ---
PT UP WALKING THE HALLWAYS.
--- NOTE | 2018-10-17 18:55 | NUR ---
PT RESTING. S/O AND AT THE BEDSIDE. NO NEEDS VOICED.
[2018-10-17] MEDS: DOCUSATE SODIUM 100 MG (COLACE) CAP PO SCH (20:32)
--- NOTE | 2018-10-17 21:00 | NUR ---
pt sitting up in bed. s/o at bedside. assessment completed. pt denies any needs at this time. will continue to monitor.
[2018-10-18 01:55] VITALS: BP 115/68
[2018-10-18] MEDS: IBUPROFEN 600 MG (MOTRIN) TAB PO SCH ×3 (02:46→14:30)
[2018-10-18 06:19] VITALS: BP 118/59
[2018-10-18 06:43] LABS: BASOPHILS % (AUTO) 0 % (0-10); EOSINOPHILS # (AUTO) 0.1 10^3/uL (0.0-0.3); EOSINOPHILS % (AUTO) 1 % (0-10); HEMATOCRIT 39 % (35-52); HEMOGLOBIN 12.5 G/DL (11.5-16.0); LYMPHOCYTES # (AUTO) 2.6 X 10^3 (1.0-4.0); LYMPHOCYTES % (AUTO) 19 % (12-44); MEAN CORPUSCULAR HEMOGLOBIN 27 PG (25-34); MEAN CORPUSCULAR HGB CONC 33 G/DL (32-36); MEAN CORPUSCULAR VOLUME 84 FL (80-99); MEAN PLATELET VOLUME 9.3 FL (7.4-10.4); MONOCYTES % (AUTO) 7 % (0-12); NEUTROPHILS # (AUTO) 10.2 X 10^3 (1.8-7.8); NEUTROPHILS % (AUTO) 73 % (42-75); PLATELET COUNT 231 10^3/uL (130-400); RED CELL DISTRIBUTION WIDTH 13.9 % (10.0-14.5); WHITE BLOOD COUNT 13.9 10^3/uL (4.3-11.0)
[2018-10-18] MEDS ORDERED: PRENATAL VITAMIN 1 EA TAB PO SCH (07:00)
[2018-10-18] MEDS: DOCUSATE SODIUM 100 MG (COLACE) CAP PO SCH (09:25)
[2018-10-18 09:35] VITALS: BP 122/76
--- NOTE | 2018-10-18 09:35 | NUR ---
initial shift assessment completed, see interventions for further. POC reviewed, states understanding. and @ side.
[2018-10-18] MEDS ORDERED: IBUP-844 PO ×2 (13:23)
--- NOTE | 2018-10-18 13:23 | NUR ---
here. dismissal orders received.
--- NOTE | 2018-10-18 13:25 | Discharge Instructions ---
Discharge Inst-Women's Serv Depart Medications New, Converted or Re-Newed RX: RX on Chart New Medications: Ibuprofen (Ibu) 600 Mg Tablet 600 MG PO Q6HR PRN for PAIN-MODERATE, #60 TAB 0 Refills Continued Medications: Vit/Iron Fumarate/FA ( Tablet) 1 Each Tablet 1 EACH PO DAILY, TAB [Vitiams] () Discontinued Medications: Famotidine (Acid Fruit Worker (FAMOTIDINE)) 10 Mg Tablet 10 MG PO BID PRN for antacid, TAB Follow Up/Instructions Goal/Follow Up: Follow up with Dr. Meeks in 6 weeks for visit. Activity Activity: Activity as Tolerated (avoid strenuous activity x 6 weeks) Nothing Inside Vagina: No Douching, No [place], No Tampons Diet Discharge Diet: Regular Diet Symptoms to Report to : Bleeding Excessive, Fever Over 101 Degrees F, Pain/Pressure in Chest, Vaginal Bleeding Increase, Cramps in Feet or Legs, Vaginal Discharge Foul, Dizziness/Fainting, Shortness of Breath For Any Problems or Questions: Contact Your Physician Copies To 1: SHARIF MEEKS MD, BETHANY N MD Oct 18, 2018 13:25
--- NOTE | 2018-10-18 13:27 | Discharge Summary ---
Diagnosis/Chief Complaint Date of Admission Oct 17, 2018 at 07:12 Date of Discharge Oct 18, 2018 Admission Diagnosis Admission Diagnosis Term intrauterine Active labor Discharge Diagnosis S/P spontaneous vaginal delivery Chief Complaint/HPI Chief Complaint/HPI 23 yo G2 now P2 came to labor and delivery at 39 weeks gestation in active labor. Discharge Summary-Simple/Stand Procedures Spontaneous vaginal delivery Discharge Physical Examination Allergies: Coded Allergies: No Known Drug Allergies (Unverified , 10/16/18) Vitals & I&Os Vital Sign - Last 12Hours Date Time Temp Pulse Resp B/P (MAP) Pulse Ox O2 Delivery O2 Flow Rate FiO2 10/18/18 09:35 97.6 110 18 122/76 (91) 95 Room Air Intake and Output 10/18/18 00:00 Intake Total 1000 ml Balance 1000 ml General Appearance: Alert, No Acute Distress Respiratory: Clear to Auscultation, Normal Air Movement Cardiovascular: Regular Rate, No Murmurs Neuro: Normal Speech Psych/Mental Status: Mental Status NL Hospital Course Was the Problem List Reviewed?: Yes Uncomplicated labor and delivery and course. Labs Laboratory Tests Test 10/17/18 07:45 10/18/18 06:09 Range/Units White Blood Count 15.4 H 13.9 H 4.3-11.0 10^3/uL Red Blood Count 4.80 4.61 4.35-5.85 10^6/uL Hemoglobin 13.3 12.5 11.5-16.0 G/DL Hematocrit 40 39 35-52 % Mean Corpuscular Volume 83 84 80-99 FL Mean Corpuscular Hemoglobin 28 27 25-34 PG Mean Corpuscular Hemoglobin Concent 33 33 32-36 G/DL Red Cell Distribution Width 13.9 13.9 10.0-14.5 % Platelet Count 254 231 130-400 10^3/uL Mean Platelet Volume 9.2 9.3 7.4-10.4 FL Neutrophils (%) (Auto) 79 H 73 42-75 % Lymphocytes (%) (Auto) 13 19 12-44 % Monocytes (%) (Auto) 7 7 0-12 % Eosinophils (%) (Auto) 0 1 0-10 % Basophils (%) (Auto) 0 0 0-10 % Neutrophils # (Auto) 12.2 H 10.2 H 1.8-7.8 X 10^3 Lymphocytes # (Auto) 2.0 2.6 1.0-4.0 X 10^3 Monocytes # (Auto) 1.1 H 1.0 0.0-1.0 X 10^3 Eosinophils # (Auto) 0.1 0.1 0.0-0.3 10^3/uL Basophils # (Auto) 0.0 0.0 0.0-0.1 10^3/uL Neutrophils % (Manual) 77 % Lymphocytes % (Manual) 13 % Monocytes % (Manual) 5 % Eosinophils % (Manual) 0 % Basophils % (Manual) 0 % Band Neutrophils 5 % Blood Morphology Comment NORMAL Discharge Instructions to patient/family Please see electronic discharge instructions given to patient. Discharge Medications Reviewed and agree with Discharge Medication list on patient's Discharge Instruction sheet Clinical Quality Measures DVT/VTE Risk/Contraindication: Risk Factor Score Per Nursin RFS Level Per Nursing on Admit: 1=Low/No VTE PPX Copy Copies To 1: SHARIF MEEKS MD, BETHANY N MD Oct 18, 2018 13:27
[2018-10-18 14:30] VITALS: BP 112/67
--- NOTE | 2018-10-18 14:35 | NUR ---
dismissal instructions given, verbalizes understanding. reviewed dismissal Rx and follow up appointment. signature page signed, placed on chart.
--- NOTE | 2018-10-18 14:43 | NUR ---
Wood Kay called into [facility] in [place] per pt's request.
--- NOTE | 2018-10-18 14:55 | Anesthesia-Regional Post-Op ---
Regional Patient Condition Mental Status: Alert, Oriented x3 Circulation: Same as Pre-Op Headache: Absent Sensation: Full Recovery Motor Block: Absent Post Op Complications Complications None Follow Up Care/Instructions Patient Instructions None needed. Anesthesia/Patient Condition Patient is doing well, no complaints, stable vital signs, no apparent adverse anesthesia problems. No complications reported per nursing. JINA LOERA CRNA Oct 18, 2018 14:55
--- NOTE | 2018-10-18 15:30 | NUR ---
pt ambulated to private vehicle with BITA Montero, and family members @ side. infant secured in rear facing car seat. pt stable with no sx's of distress noted.
== END 2018-10-18 15:30 | disposition home or self-care (01) | DRG 807 ==
LOC: WSo 07:10 → LDRP 07:10 → WSo 07:12 → LDRP 13:57
PROVIDERS: ADMIT Family Medicine; ATTEND Family Medicine
PROC: 10E0XZZ Delivery of Products of Conception, External Approach (ICD-10-PCS; principal; 2018-10-17)
DX: O64.0XX0 Obstructed labor due to incomplete rotation of fetal head, not applicable or unspecified (principal); O69.81X0 Labor and delivery complicated by cord around neck, without compression, not applicable or unspecified; Z37.0 Single live birth; Z3A.39 39 weeks gestation of pregnancy
CPT/HCPCS: 36415; 85007; 85025; 85027; 86850; 86900; 86901; 99212

== ENCOUNTER 2021-06-10 05:40 | Outpatient (CLI) | payer BC, MEDICAID ==
[~2021-06-10] VITALS: Ht 177.8 cm; Wt 100.0 kg
[~2021-06-10 05:40] MED LIST changes: -D5 LR IV SOLUTION 1,000 ML IV ONE; +IBUP-844 PO; +PREN-37 PO
== END 2021-06-10 13:22 ==
LOC: PREOP 05:40
PROVIDERS: ATTEND Obstetrics & Gynecology
DX: Z01.818 Encounter for other preprocedural examination (principal)

== ENCOUNTER 2021-06-17 07:00 | Day surgery (SDC) | payer BC, MEDICAID ==
[2021-06-17] VITALS (10 sets, daily range): BP systolic 104–126; BP diastolic 72–88
[~2021-06-17] VITALS: Ht 177.8 cm; Wt 100.0 kg
[2021-06-17] MEDS ORDERED: BUPIVACAINE 0.25% 30 ML (SENSORCAINE) VIAL ONE (07:10)
[2021-06-17] MEDS ORDERED: LACTATED RINGERS 1,000 ML IV PRN (07:15)
--- NOTE | 2021-06-17 07:41 | Progress Note-Pre Operative ---
Pre-Operative Progress Note H&P Reviewed The H&P was reviewed, patient examined and no changes noted. Date Seen by Provider: Jun 17, 2021 Time Seen by Provider: 07:45 Date H&P Reviewed: Jun 17, 2021 Time H&P Reviewed: 07:45 Pre-Operative Diagnosis: TAY 3/CIS, + ECC LEATHA GILLIS DO Jun 17, 2021 07:41
[2021-06-17 07:46] LABS: BASOPHILS % (AUTO) 0 % (0-10); EOSINOPHILS # (AUTO) 0.2 10^3/uL (0.0-0.3); EOSINOPHILS % (AUTO) 3 % (0-10); HEMATOCRIT 47 % (35-52); LYMPHOCYTES # (AUTO) 2.2 10^3/uL (1.0-4.0); LYMPHOCYTES % (AUTO) 28 % (12-44); MEAN CORPUSCULAR HEMOGLOBIN 27 pg (25-34); MEAN CORPUSCULAR HGB CONC 32 g/dL (32-36); MEAN CORPUSCULAR VOLUME 84 fL (80-99); MEAN PLATELET VOLUME 8.9 fL (9.0-12.2); MONOCYTES # (AUTO) 0.5 10^3/uL (0.0-1.0); MONOCYTES % (AUTO) 7 % (0-12); NEUTROPHILS # (AUTO) 4.8 10^3/uL (1.8-7.8); NEUTROPHILS % (AUTO) 62 % (42-75); PLATELET COUNT 303 10^3/uL (130-400); WHITE BLOOD COUNT 7.8 10^3/uL (4.3-11.0)
--- NOTE | 2021-06-17 08:25 | Discharge Inst-Women's Service ---
Discharge Inst-Women's Serv Depart Medication/Instructions New, Converted or Re-Newed RX: Transmitted to Pharmacy Final Diagnosis CIS Problems Reviewed?: Yes Consults/Follow Up Additional Follow Up: Yes Orders/Referrals Dr. Gillis in 2-3 weeks Activity Activity: Activity as Tolerated Driving Instructions: No Driving for 1 Week NO SMOKING: NO SMOKING Nothing Inside Vagina: No Douching, No [place], No Tampons Diet Discharge Diet: No Restrictions Symptoms to Report to : Bleeding Excessive, Pain Increased, Fever Over 101 Degrees F, Vaginal Bleeding Increase, Questions/Concerns For Any Problems or Questions: Contact Your Physician LEATHA GILLIS DO Jun 17, 2021 08:25
[2021-06-17] MEDS ORDERED: ACHD5005 PO (08:26)
[2021-06-17] MEDS ORDERED: IBUP-1773 PO (08:26)
[2021-06-17] MEDS ORDERED: ONDANSETRON 4 MG/2 ML (SDV) Z0FRAN ONE (08:28)
[2021-06-17] MEDS ORDERED: LIDOCAINE PF 2% 5 ML (XYLOCAINE) VIAL ONE (08:28)
[2021-06-17] MEDS ORDERED: proPOfol 200 MG/20 ML (DIPRIVAN) VIAL IV ONE (08:28)
[2021-06-17] MEDS ORDERED: ONDANSETRON 4 MG/2 ML (SDV) Z0FRAN IVP PRN ×2 (08:30→09:45)
[2021-06-17] MEDS ORDERED: KETOROLAC 30 MG/ML VIAL IVP ONE (08:30)
[2021-06-17] MEDS ORDERED: HYDROcodone/APAP 5 MG/325 MG (LORTAB) TAB PO PRN (08:30)
[2021-06-17] MEDS ORDERED: D5 LR IV SOLUTION 1,000 ML IV SCH (08:30)
[2021-06-17] MEDS ORDERED: fentaNYL INJ 100 MCG/2 ML AMP ONE (08:45)
[2021-06-17] MEDS ORDERED: MIDAZOLAM 2 MG/2 ML (VERSED) VIAL ONE (08:45)
[2021-06-17] MEDS ORDERED: LIDOCAINE/EPI 2% 1:100,00 (XYLOCAINE) 20 ML VIAL ONE (08:53)
[2021-06-17] MEDS ORDERED: SEVOFLURANE (ULTANE) 15 ML INHAL SOLN ONE ×2 (09:32→09:33)
--- NOTE | 2021-06-17 09:38 | Anesthesia-General Post-Op ---
General Patient Condition Mental Status/LOC: Same as Preop Cardiovascular: Satisfactory Nausea/Vomiting: Absent Respiratory: Satisfactory Pain: Controlled Complications: Absent Post Op Complications Complications None Follow Up Care/Instructions Patient Instructions None needed. Anesthesia/Patient Condition Patient Condition Patient is doing well, no complaints, stable vital signs, no apparent adverse anesthesia problems. No complications reported per nursing. BREANNE COONEY CRNA Jun 17, 2021 09:38
[2021-06-17] MEDS ORDERED: PROMETHAZINE INJ 25 MG/ML (PHENERGAN) AMP IVP ONE (09:45)
[2021-06-17] MEDS ORDERED: MEPERIDINE (DEMEROL) INJ 50 MG/ML IVP ONE (09:45)
[2021-06-17] MEDS ORDERED: morphine INJ 10 MG/ML 1ML (SYR OR VIAL) IVP ONE (09:45)
[2021-06-17] MEDS ORDERED: KETOROLAC 30 MG/ML VIAL ONE (09:46)
--- NOTE | 2021-06-17 15:11 | OPERATIVE REPORT ---
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 PROCEDURE: Cold knife conization. SURGEON: Leatha Gillis DO ANESTHESIA: LMA general. ESTIMATED BLOOD LOSS: 100 mL. URINE OUTPUT: 100 mL at the end of procedure. FLUIDS: 300 mL lactated Ringer's solution. FINDINGS: Grossly normal-appearing external female genitalia, grossly normal appearing external cervical os and transformation zone. SPECIMEN SENT: Cervical conization biopsy. INDICATIONS FOR PROCEDURE: This 25-year-old female was in a consultation in my office for TAY 3 with carcinoma in situ on endocervical sampling on colposcopy. After this was done, her family practice doctor referred her on to me for further evaluation and diagnostics. I discussed with the patient indications for conization biopsy of the cervix. I discussed with her how a cold knife cone could be better directed and get a deeper margin if necessary depending on the pathology with her. We decided to proceed with cold knife conization. Risks of procedure were discussed with the patient in detail and after all her questions were answered, consent was obtained, the patient was taken to the operating room. OPERATIVE REPORT IN DETAIL: Once in the operating room and anesthesia was found to be adequate, placed in dorsal lithotomy position, prepped and draped in normal sterile fashion. Timeout was performed. A weighted speculum inserted to the patient's vagina. Right angle retractor was used to visualize the cervix, which was grasped at 12 o'clock position using a single tooth tenaculum. I then performed paracervical block at 3 and 9 o'clock positions on the cervix using 0.25% Marcaine. Care was taken to aspirate for injecting 5 mL of 0.25% Marcaine injected into each site. I then performed a ligating suture at 3 and 9 o'clock position using 2-0 Vicryl suture to secure hemostasis to the cervix throughout the procedure. I then applied Lugol's solution. There was no extension of the transformation zone beyond the normal margins. There is no lesion extending on the external cervical margin noted after Lugol staining. I then injected the stroma of the cervix with 2% lidocaine with epinephrine. A total of 20 mL were injected throughout the cervical stroma to control bleeding during the procedure. I then took a cone biopsy using 11 blade knife to excise the entire transformation zone margin and King scissors were used to take the margin deep down the endocervical margin as well. This is a more of a narrow conization biopsy than it is a wide one. Once it was completely excised, it is sent together as conization biopsy of the cervix. I then cauterized the vascular margins of the biopsy using a ball cautery. I then placed four separate Sturmdorf stitches using 2-0 Vicryl suture to help control bleeding after which there was no active bleeding noted from the cervix at all. I then placed astringent solution over the top of the cervix as well to control postoperative hemostasis. I then removed all instruments from the patient's vagina. The patient tolerated the procedure well and sent to recovery in stable condition. Lap and sponge counts were correct at the end of the procedure. Instrument counts correct as well. Job ID: [id number] DocumentID: [id number] Dictated Date: 06/17/2021 10:36:52 Entertainment Usher Date: 06/17/2021 15:10:23 Dictated By: LEATHA GILLIS DO
== END 2021-06-17 11:17 | disposition home or self-care (01) ==
LOC: SDC 07:00
PROVIDERS: ATTEND Obstetrics & Gynecology
DX: D06.0 Carcinoma in situ of endocervix (principal); E66.9 Obesity, unspecified; Z68.31 Body mass index [BMI] 31.0-31.9, adult
CPT/HCPCS: 36415; 84703; 85025; 86850; 86900; 86901; 87081